=== PATIENT | female | born 1950 | race Caucasian/White ===

== ENCOUNTER → 2017-03-16 | Outpatient (CLI) | payer OTHER ==
[~2017-03-16] MED LIST: ATORVASTATIN CA10 MG PO; CIPRO500 MG PO; GILTUSS TR TAB1 EACH PO; LOPRESSOR 50 MG PO; LOPRESSOR25 MG PO; Levsin/Sl 0.125 MG TAB.SUBL SL; Mylicon 125MG PO; OSEL75CA PO; SYNTROID PO; TUSSI-PRES LIQ118 ML PO; ZITHROMAX TRI-500 MG PO; ZYRTEC10 MG PO
== END | disposition home or self-care (01) ==
LOC: LAB 16:12
DX: R50.9 Fever, unspecified (principal)

== ENCOUNTER 2018-03-21 15:31 | Outpatient (CLI) | payer OTHER | END 2018-03-21 15:34 | disposition home or self-care (01) | LOC: RAD 15:31 | DX: M54.2 Cervicalgia (principal) ==

== ENCOUNTER → 2018-05-14 10:48 | Outpatient (CLI) | payer OTHER | END | disposition home or self-care (01) | LOC: LAB 10:48 | DX: J20.0 Acute bronchitis due to Mycoplasma pneumoniae (principal); J11.1 Influenza due to unidentified influenza virus with other respiratory manifestations ==

== ENCOUNTER 2018-05-24 12:40 | Outpatient (CLI) | payer OTHER | END 2018-05-24 14:26 | disposition home or self-care (01) | LOC: MAMO-SONO 12:40 | DX: Z12.31 Encounter for screening mammogram for malignant neoplasm of breast (principal) ==

== ENCOUNTER → 2018-07-18 14:14 | Outpatient (CLI) | payer OTHER | END | disposition home or self-care (01) | LOC: LAB 14:14 | DX: J11.1 Influenza due to unidentified influenza virus with other respiratory manifestations (principal); Z11.8 Encounter for screening for other infectious and parasitic diseases ==

== ENCOUNTER 2019-03-14 09:20 | Emergency (ER) | payer OTHER ==
[~2019-03-14] VITALS: Ht 157.5 cm; Wt 69.9 kg
== END 2019-03-14 11:35 | disposition home or self-care (01) ==
LOC: ER 09:20
DX: I16.0 Hypertensive urgency (principal); I10 Essential (primary) hypertension; R51 Headache

== ENCOUNTER 2019-04-24 08:41 | Outpatient (CLI) | payer OTHER | END 2019-04-24 09:30 | disposition home or self-care (01) | LOC: MAMO-SONO 08:41 | DX: Z12.31 Encounter for screening mammogram for malignant neoplasm of breast (principal); Z87.898 Personal history of other specified conditions; Z12.39 Encounter for other screening for malignant neoplasm of breast ==

== ENCOUNTER 2019-11-12 13:00 | Outpatient (CLI) | payer OTHER | END 2019-11-12 15:00 | disposition home or self-care (01) | LOC: PPH VACUNA 13:00 | DX: Z23 Encounter for immunization (principal) ==

== ENCOUNTER 2019-12-06 06:23 | Outpatient (CLI) | payer OTHER | END 2019-12-06 06:32 | disposition home or self-care (01) | LOC: LAB 06:23 | DX: A53.9 Syphilis, unspecified (principal) ==

== ENCOUNTER 2020-02-13 14:04 | Outpatient (CLI) | payer OTHER | END 2020-02-13 15:00 | disposition home or self-care (01) | LOC: PPH VACUNA 14:04 | DX: Z23 Encounter for immunization (principal) ==

== ENCOUNTER 2020-07-27 07:39 | Outpatient (CLI) | payer OTHER | END 2020-07-27 07:49 | disposition home or self-care (01) | LOC: LAB 07:39 | PROVIDERS: ATTEND Internal Medicine Cardiovascular Disease | DX: I10 Essential (primary) hypertension (principal); E11.9 Type 2 diabetes mellitus without complications; E03.9 Hypothyroidism, unspecified; E78.2 Mixed hyperlipidemia; Z12.11 Encounter for screening for malignant neoplasm of colon; E55.9 Vitamin D deficiency, unspecified ==

== ENCOUNTER 2020-07-29 15:03 | Outpatient (CLI) | payer OTHER | END 2020-07-29 15:13 | disposition home or self-care (01) | LOC: MAMO-SONO 15:03 | PROVIDERS: ATTEND Internal Medicine Cardiovascular Disease | DX: N63.11 Unspecified lump in the right breast, upper outer quadrant (principal) ==

== ENCOUNTER 2020-11-23 08:00 | Outpatient (CLI) | payer OTHER | END 2020-11-23 08:30 | disposition home or self-care (01) | LOC: PPH VACUNA 08:00 | PROVIDERS: ATTEND Emergency Medicine Pediatric Emergency Medicine | DX: Z23 Encounter for immunization (principal) ==

== ENCOUNTER 2021-10-27 13:46 | Outpatient (CLI) | payer OTHER | END 2021-10-27 14:00 | disposition home or self-care (01) | LOC: PPH VACUNA 13:46 | PROVIDERS: ATTEND Emergency Medicine Pediatric Emergency Medicine | DX: Z23 Encounter for immunization (principal) ==

== ENCOUNTER 2021-10-27 13:46 | Outpatient (CLI) | payer OTHER | END 2021-10-27 13:51 | disposition home or self-care (01) | LOC: PPH VACUNA 13:46 | PROVIDERS: ATTEND Emergency Medicine Pediatric Emergency Medicine | DX: Z23 Encounter for immunization (principal) ==

== ENCOUNTER 2022-01-27 12:59 | Outpatient (CLI) | payer OTHER | END 2022-01-27 13:09 | disposition home or self-care (01) | LOC: PPH VACUNA 12:59 | PROVIDERS: ATTEND Emergency Medicine Pediatric Emergency Medicine | DX: Z23 Encounter for immunization (principal) ==

== ENCOUNTER 2022-06-27 06:36 | Outpatient (CLI) | payer OTHER | END 2022-06-27 06:41 | disposition home or self-care (01) | LOC: LAB 06:36 | PROVIDERS: ATTEND Internal Medicine Cardiovascular Disease | DX: I10 Essential (primary) hypertension (principal); E11.9 Type 2 diabetes mellitus without complications; E03.9 Hypothyroidism, unspecified; E78.2 Mixed hyperlipidemia; Z12.11 Encounter for screening for malignant neoplasm of colon ==

== ENCOUNTER 2022-07-06 15:07 | Outpatient (CLI) | payer OTHER | END 2022-07-06 15:18 | disposition home or self-care (01) | LOC: MAMO-SONO 15:07 | PROVIDERS: ATTEND Internal Medicine Cardiovascular Disease | DX: N63.21 Unspecified lump in the left breast, upper outer quadrant (principal); Z12.31 Encounter for screening mammogram for malignant neoplasm of breast ==

== ENCOUNTER 2023-11-06 06:02 | Outpatient (CLI) | payer OTHER ==
[2023-11-06 07:16] LABS: HEMATOCRIT 45.8 % (36.0-45.00); HEMOGLOBIN 15.4 g/dL (12.0-15.00); MEAN CELL VOLUME 88.9 fL (80.00-100.00); MEAN CORPUSCULAR HEMOGLOBIN 29.8 pg (27.00-32.0); MEAN CORPUSCULAR HGB CONC 33.5 g/dl (32.0-36.0); PLATELET COUNT 300 K/uL (150-450); RED BLOOD COUNT 5.15 M/uL (4.00-6.00); RED CELL DISTRIBUTION WIDTH 13.9 % (11.5-14.5)
[2023-11-06 07:29] LABS: URINE APPEARANCE Clear; URINE BILIRRUBIN Negative (NEGATIVE); URINE COLOR Yellow; URINE GLUCOSE Negative (NEGATIVE); URINE KETONE Negative (NEGATIVE); URINE LEUKOCYTE Negative; URINE NITRATE Negative; URINE PROTEIN Negative (NEGATIVE); URINE UROBILINOGEN 0.2 E.U./dl
[2023-11-06 07:32] LABS: ob POSITIVE (NEGATIVE)
[2023-11-06 07:34] LABS: URINE BACTERIA 105.8 uL (0.0-1933); URINE EPITHELIAL CELLS 5.8 uL (0.0-38.8); URINE RBC 39.3 uL (0.0-20.8); URINE WBC 3.8 uL (0.0-23.2)
[2023-11-06 07:56] LABS: ALBUMIN 3.7 gm/dL (3.4-5.0); BILIRUBIN TOTAL 0.42 mg/dL (0.3-1.2); CALCIUM 9.5 mg/dL (8.5-10.1); CHOL HDL RATIO 4.5 (0-5.0); CREATININE SERUM 0.66 mg/dL (0.55-1.02); GFR 87.79; GLOBULINA 3.1 G/DL (2.4-3.5); POTASSIUM 4.25 mEq/L (3.5-5.1); TOTAL PROTEIN 6.8 gm/dL (6.4-8.2)
[2023-11-06 08:06] LABS: URINE CAST 0.76 uL (0.0-1.40)
[2023-11-06 08:07] LABS: URINE BLOOD Trace
[2023-11-06 20:26] LABS: TSH 2.56 uIU/mL (0.358-3.74)
== END 2023-11-06 06:03 | disposition home or self-care (01) ==
LOC: LAB 06:02
PROVIDERS: ATTEND General Practice
DX: I11.9 Hypertensive heart disease without heart failure (principal); E55.9 Vitamin D deficiency, unspecified; Z12.11 Encounter for screening for malignant neoplasm of colon; R30.0 Dysuria; E06.9 Thyroiditis, unspecified; E11.8 Type 2 diabetes mellitus with unspecified complications; E78.2 Mixed hyperlipidemia; E16.2 Hypoglycemia, unspecified; D64.9 Anemia, unspecified; R10.84 Generalized abdominal pain

== ENCOUNTER 2023-12-01 10:35 | Outpatient (CLI) | payer OTHER | END 2023-12-01 11:00 | disposition home or self-care (01) | LOC: PPH VACUNA 10:35 | PROVIDERS: ATTEND Emergency Medicine Pediatric Emergency Medicine | DX: Z23 Encounter for immunization (principal) ==

== ENCOUNTER 2023-12-20 10:57 | Outpatient (CLI) | payer OTHER | END 2023-12-20 10:58 | disposition home or self-care (01) | LOC: NUCLEAR 10:57 | PROVIDERS: ATTEND General Practice | DX: I73.9 Peripheral vascular disease, unspecified (principal); M79.661 Pain in right lower leg; M79.662 Pain in left lower leg; I87.2 Venous insufficiency (chronic) (peripheral); E11.9 Type 2 diabetes mellitus without complications ==

== ENCOUNTER → 2023-12-21 10:59 | Outpatient (CLI) | payer OTHER | END | disposition home or self-care (01) | LOC: NUCLEAR 10:59 | PROVIDERS: ATTEND General Practice | DX: I73.9 Peripheral vascular disease, unspecified (principal) ==

== ENCOUNTER 2024-03-29 11:20 | Outpatient (CLI) | payer OTHER | END 2024-03-29 11:22 | disposition home or self-care (01) | LOC: NUCLEAR 11:20 | PROVIDERS: ATTEND Internal Medicine | DX: I11.9 Hypertensive heart disease without heart failure (principal); I50.9 Heart failure, unspecified ==

== ENCOUNTER 2024-04-08 06:05 | Outpatient (CLI) | payer OTHER ==
[2024-04-08 07:24] LABS: HEMATOCRIT 39.2 % (36.0-45.00); HEMOGLOBIN 13.5 g/dL (12.0-15.00); MEAN CELL VOLUME 88.8 fL (80.00-100.00); MEAN CORPUSCULAR HEMOGLOBIN 30.5 pg (27.00-32.0); MEAN CORPUSCULAR HGB CONC 34.4 g/dl (32.0-36.0); PLATELET COUNT 273 K/uL (150-450); RED BLOOD COUNT 4.41 M/uL (4.00-6.00); RED CELL DISTRIBUTION WIDTH 13.5 % (11.5-14.5)
[2024-04-08 08:20] LABS: ALBUMIN 3.4 gm/dL (3.4-5.0); BILIRUBIN TOTAL 0.32 mg/dL (0.3-1.2); CALCIUM 8.6 mg/dL (8.5-10.1); CHOL HDL RATIO 2.8 (0-5.0); CREATININE SERUM 0.69 mg/dL (0.55-1.02); GFR 83.4; GLOBULINA 2.7 G/DL (2.4-3.5); POTASSIUM 3.78 mEq/L (3.5-5.1); TOTAL PROTEIN 6.1 gm/dL (6.4-8.2); TSH 3.41 uIU/mL (0.358-3.74)
== END 2024-04-08 06:06 | disposition home or self-care (01) ==
LOC: LAB 06:05
PROVIDERS: ATTEND Internal Medicine
DX: I11.9 Hypertensive heart disease without heart failure (principal); E28.2 Polycystic ovarian syndrome; E03.9 Hypothyroidism, unspecified; E11.9 Type 2 diabetes mellitus without complications

== ENCOUNTER 2024-06-05 06:19 | Emergency (ER) | payer OTHER ==
[~2024-06-05] VITALS: Ht 157.5 cm; Wt 76.2 kg
[2024-06-05] MEDS ORDERED: DAFLONEX-XL 11300 MG PO (06:26)
[2024-06-05] MEDS ORDERED: VALSARTAN-HCTZ1 EAC3 PO (06:26)
[2024-06-05] MEDS ORDERED: ATORVASTATIN CA20 MG PO (06:27)
[2024-06-05] MEDS ORDERED: HYDROCODONE/CHLORPHEN P-STIREX 5 ML ML PO STA (07:45)
== END 2024-06-05 08:34 | disposition home or self-care (01) ==
LOC: ER 06:19
DX: R53.81 Other malaise (principal); J06.9 Acute upper respiratory infection, unspecified; Z88.0 Allergy status to penicillin

== ENCOUNTER 2024-11-20 06:12 | Outpatient (CLI) | payer OTHER ==
[~2024-11-20 06:12] MED LIST changes: +ATORVASTATIN CA20 MG PO; +DAFLONEX-XL 11300 MG PO; +VALSARTAN-HCTZ1 EAC3 PO
[2024-11-20 06:54] LABS: BASO % 0.5 % (0.1-1.2); EOS # 0.13 (0.04-0.54); EOS % 1.7 % (0.7-7.0); LYMPH # 2.52 (1.18-3.74); LYMPH % 32.3 % (19.3-53.1); MEAN PLATELET VOLUME 10.30 fl (9.4-12.4); MONO # 0.70 (0.24-0.82); MONO % 9.0 % (4.7-12.5); NEUT # 4.25 (1.56-6.13); NEUT % 54.3 % (34.0-71.1); RED CELL DISTRIBUTION WIDTH 13.0 % (11.6-14.4)
[2024-11-20 07:39] LABS: URINE APPEARANCE Clear; URINE BILIRRUBIN Negative (NEGATIVE); URINE BLOOD Negative; URINE COLOR Yellow; URINE GLUCOSE Negative (NEGATIVE); URINE KETONE Negative (NEGATIVE); URINE LEUKOCYTE Negative; URINE NITRATE Negative; URINE PROTEIN Negative (NEGATIVE); URINE UROBILINOGEN 0.2 E.U./dl
[2024-11-20 07:43] LABS: URINE BACTERIA 15.5 uL (0.0-1933); URINE EPITHELIAL CELLS 6.2 uL (0.0-38.8); URINE RBC 9.2 uL (0.0-20.8); URINE WBC 2.9 uL (0.0-23.2)
[2024-11-20 08:03] LABS: URINE CAST 0.29 uL (0.0-1.40)
[2024-11-20 08:30] LABS: ALT/SGPT 40.0 U/L (12-78); AST/SGOT 17.0 U/L (15-37); BILIRUBIN TOTAL 0.47 mg/dL (0.3-1.2); BUN CREA RATIO 31.0 (7.0-25.0); CHOL HDL RATIO 3.0 (0-5.0); CREATININE SERUM 0.68 mg/dL (0.55-1.02); GFR 84.58; GLOBULINA 2.9 G/DL (2.4-3.5); GLUCOSE FASTING 127.0 mg/dL (65-100); HDL 50.0 mg/dl (40-60); LDL 71.0 mg/dl (0-130); OSMOLALITY SERUM 293.0 MOSM/KG (275-295); T4 FREE 0.92 NG/ML (0.76-1.46); TSH 3.89 uIU/mL (0.358-3.74); VLDL 27.0 (0-39)
== END 2024-11-20 06:17 | disposition home or self-care (01) ==
LOC: LAB 06:12
PROVIDERS: ATTEND Emergency Medicine Pediatric Emergency Medicine
DX: Z13.29 Encounter for screening for other suspected endocrine disorder (principal)

== ENCOUNTER 2024-12-11 10:00 | Outpatient (CLI) | payer OTHER | END 2024-12-11 10:10 | disposition home or self-care (01) | LOC: PPH VACUNA 10:00 | PROVIDERS: ATTEND Emergency Medicine Pediatric Emergency Medicine | DX: Z23 Encounter for immunization (principal) ==

== ENCOUNTER 2025-02-03 06:12 | Outpatient (CLI) | payer OTHER ==
[2025-02-03 07:36] LABS: BASO % 0.2 % (0.1-1.2); EOS # 0.18 (0.04-0.54); EOS % 2.1 % (0.7-7.0); LYMPH # 2.22 (1.18-3.74); LYMPH % 26.2 % (19.3-53.1); MEAN PLATELET VOLUME 10.80 fl (9.4-12.4); MONO # 0.67 (0.24-0.82); MONO % 7.9 % (4.7-12.5); NEUT # 5.26 (1.56-6.13); NEUT % 62.2 % (34.0-71.1); RED CELL DISTRIBUTION WIDTH 13.1 % (11.6-14.4)
[2025-02-03 08:30] LABS: ALT/SGPT 46.0 U/L (12-78); AST/SGOT 20.0 U/L (15-37); BILIRUBIN TOTAL 0.26 mg/dL (0.3-1.2); BUN CREA RATIO 29.0 (7.0-25.0); CHOL HDL RATIO 3.6 (0-5.0); CREATININE SERUM 0.68 mg/dL (0.55-1.02); GFR 84.58; GLOBULINA 3.0 G/DL (2.4-3.5); GLUCOSE FASTING 114.0 mg/dL (65-100); HDL 43.0 mg/dl (40-60); LDL 39.0 mg/dl (0-130); OSMOLALITY SERUM 294.0 MOSM/KG (275-295); TSH 2.75 uIU/mL (0.358-3.74); VLDL 72.0 (0-39)
== END 2025-02-03 06:20 | disposition home or self-care (01) ==
LOC: LAB 06:12
PROVIDERS: ATTEND Internal Medicine Cardiovascular Disease
DX: E78.9 Disorder of lipoprotein metabolism, unspecified (principal); E03.9 Hypothyroidism, unspecified; E11.9 Type 2 diabetes mellitus without complications; I11.9 Hypertensive heart disease without heart failure